=== PATIENT | male | born 1935 | race Caucasian/White ===

== ENCOUNTER → 2018-07-17 | Outpatient (CLI) | payer MEDICARE ==
[~2018-07-17] MED LIST: Acetaminophen325 M1 PO; ERGO50000 PO; FLUSAL1005; LISI20; LISI20 PO; LISI5 PO; WARF4 PO; WARF5 PO
== END | disposition home or self-care (01) ==
LOC: PLD 08:43 → LAB SHORT 08:43
DX: L57.0 Actinic keratosis (principal); L81.4 Other melanin hyperpigmentation; L57.8 Other skin changes due to chronic exposure to nonionizing radiation
CPT/HCPCS: 88305

== ENCOUNTER 2018-10-26 09:16 | Inpatient (IN) | payer MEDICARE ==
[~2018-10-26] VITALS: Ht 172.7 cm; Wt 88.0 kg
[~2018-10-26 09:16] MED LIST changes: +DICLOFENAC SOD100 G1 TOP; +LOSA50 PO; +VOLTAREN100 GM; +XARELTO20 MG PO; +[UNRECOGNIZED DRUG - OTHER] PO
--- NOTE | 2018-10-26 09:48 | NUR ---
Ambulatory in Day Surgery History, Chart, Medications and Allergies reviewed before start of procedure.Lungs clear T/O to Auscultation. Surgical site prepped with 2% Chlorhexidine cloth wipe.
--- NOTE | 2018-10-26 10:50 | NUR ---
UP TO BATHROOM AT THIS TIME AND BACK TO BED
--- NOTE | 2018-10-26 15:00 | NUR ---
"DIAMOND SORTER | PATIENT IN A LOT OF PAIN. Spoke with Dr. Jimenez regarding patient pain. Dr. Barreto ordered 30 mg of toradol. Gave patient [address] jimenez stated to give no more fentanyl since patient had apenic episode. He stated the patient needs PO meds."
--- NOTE | 2018-10-26 15:16 | NUR ---
"SENIOR NETWORK SECURITY ARCHITECT | SPOKE WITH DR. BARRETO and report to floor RN Ebonie RN on surgical expressed concern about patient acuity, spoke with Dr. Barreto and she stated that the patient would be appropiate for surgical floor care and ordered continous pulse ox. Order place. Report given to RN. VSS. A/O. Sleepy but arousable. Site c/d/i. Denies nausea. Pain decreasing. Xrays done. Polar pack in place. SCDs on. NOELLE blackburn on."
--- NOTE | 2018-10-26 16:31 | NUR ---
ADMIT TO UNIT PATIENT ARRIVED FROM PACU, MOANING AND REPORTS 9/10 RIGHT HIP PAIN WHICH RADIATED DOWN RIGHT BUTTOCK. PATIENT DENIES ANY SURGICAL KNEE PAIN. PATIENTS RIGHT KNEE WITH POLAR PCAK IN PLACE. AQUACELL DRESSING CLEAN, DRY AND INTACT.
--- NOTE | 2018-10-26 16:33 | NUR ---
PAIN PATIENT REPORTS RIGHT HIP PAIN LESSENED AFTER REPOSITIONED. PHYSICAL THERAPY AT BEDSIDE
--- NOTE | 2018-10-26 17:13 | NUR ---
BIOX PHYSICAL THERAPY AT BEDSIDEPERFORMING PATIENT [place]. PATIENT HAS BEDSIDE OXIMETER IN PLACE TO LEFT HAND AND FINGER PROBE MONITOR IN PLACE TO RIGHT HAND. PT NOTED BIOX TO DROP ON TWO SEPARATE OCCASSIONS WITH PATIENT MOVING IN BED. PATIENTS READINGSWERE 75% DURING ONE EPISODE AND 71% DURING SECOND EPISODE WITH INTACT WAVEFORM PRESENT ON BOTH OXYGEN MONITOR SCREENS. RESPIRATORY CARE NOTIFIED AND RESPONDED TO ROOM. DR EMILEE MCGEE CONTACTED AND NEW ORDERS RECEIVED. PATIENT DAUGHTERS REPORT PATINETS OXYGEN DROPPING HAS OCCURRED IN THE PAST. PER PATIENT HE HAD STUDIES IN THE PAST AT [facility] AND CPAP WAS RECOMMENDED BUT THAT HE DID NOT FOLLOW THROUGH ON OBTAINING CPAP.
--- NOTE | 2018-10-26 17:43 | NUR ---
SUMMARY DR EMILEE MCGEE HERE TO SEE PATIENT. DISCUSSED PATIENTS OXYGEN DE SATURATIONS AND PATIENTS REPORT OF SEVERE POST OP RIGHT HIP PAIN. PATIENT REPORTS HIP PAIN CURRENTLY 3/10 AND HAS NO KNEE PAIN/ RIGHT KNEE DRESSING DRY AND INTACT. PATIENT DENIES ANY NUMBNESS OR TINGLING
--- NOTE | 2018-10-26 18:31 | NUR ---
biox biox reading 75% on right hand and left hand biox with good waveform. patient sleeping. awakened patient and instructed to deep breathe. biox up to 96% after 6 deep breaths. oxygen placed at 2 liters nasal cannula
[2018-10-27 04:43] LABS: BASOPHILS ABSOLUTE AUTO 0.01 K/mm3 (0.00-0.23); BASOPHILS PERCENT AUTO 0 % (0-2); EOSINOPHILS PERCENT AUTO 0 % (0-6); Hematocrit 35.7 % (37.0-53.0); Hemoglobin 11.5 g/dL (13.5-17.5); IMMATURE GRAN ABSOLUTE AUTO 0.05 K/mm3 (0.00-0.10); IMMATURE GRAN PERCENT AUTO 0 % (0-1); LYMPHOCYTES ABSOLUTE AUTO 0.55 K/mm3 (0.84-5.20); LYMPHOCYTES PERCENT AUTO 5 % (21-46); MONOCYTES ABSOLUTE AUTO 0.48 K/mm3 (0.16-1.47); MONOCYTES PERCENT AUTO 4 % (4-13); Mean Corpuscular HGB 30.5 pg (26.0-34.0); Mean Corpuscular HGB Conc 32.2 g/dL (31.5-36.5); Mean Corpuscular Volume 95 fL (80-100); Mean Platelet Volume 10.7 fL (9.1-12.4); NEUTROPHILS PERCENT AUTO 91 % (41-73); Platelet Count 87 K/mm3 (150-400); RDW Coefficient Variation 13.1 % (11.7-14.2); RDW Standard Deviation 45.5 fL (35.1-46.3); Red Blood Cell Count 3.77 M/mm3 (4.30-5.90); White Blood Cell Count 11.69 K/mm3 (4.00-11.30)
[2018-10-27 04:55] LABS: Anion Gap 4 mmol/L (6-16); Blood Urea Nitrogen 14 mg/dL (8-24); Bun/Creatinine Ratio 16.9 (12.0-20.0); CO2, Blood 27 mmol/L (21-32); Calcium, Blood 7.6 mg/dL (8.5-10.1); Chloride, Blood 106 mmol/L (98-108); Creatinine, Blood 0.83 mg/dL (0.60-1.20); Glomerular Filtration Rate >60 (60-); Glucose, Blood 130 mg/dL (70-99); Magnesium, Blood 1.9 mg/dL (1.6-2.4); Potassium, Blood 4.7 mmol/L (3.5-5.5); Sodium, Blood 137 mmol/L (136-145)
--- NOTE | 2018-10-27 07:22 | NUR ---
SHIFT SUMMARY PT POD#1 RIGHT TKA. AAOX4. DISCOMFORT CONTROLLED WITH SCHEDULED TYLENOL/TORADOL + 5MG ROXICODONE X1 THIS SHIFT. NO NAUSEA/EMESIS. 2L VIA NC T/O NIGHT. DRESSING TO RIGHT KNEE C/D/I. PT UP TO AMBULATE IN HALLS, 100 FT, TOLERATED WELL. PT UP IN BED AT THIS TIME, DRINKING COFFEE. HUBER. REPORT TO DAY SHIFT RN.
[2018-10-27] MEDS ORDERED: ACET500 PO (13:30)
[2018-10-27] MEDS ORDERED: ROXICODONE5 MG PO (13:31)
[2018-10-27] MEDS ORDERED: XARELTO20 MG PO (14:19)
--- NOTE | 2018-10-27 16:44 | NUR ---
DISCHARGE SUMMARY PT A&OX4, VSS, LEFT FLOOR VIA WC WITH RN TO GO HOME WITH DAUGHTER WITH ALL PERSONAL POSSESSIONS INCLUDING DISCHARGE PACKET, 2 AQUACEL DRESSINGS, AND 1 NARC SCRIPT. DISCHARGE ORDERS PROVIDED. PT REP UNDERSTANDING THOSE INSTRUCTIONS INCLUDING FU WITH SURGEON, OK TO SHOWER, NO TUB/JACUZZI, CHANGE DRESSING SATURDAYS. IV DC'D.
== END 2018-10-27 14:55 | disposition home or self-care (01) | DRG 470 ==
LOC: ORSCMMR 09:16 → ORD 10:00 → ORSCMMR 10:45 → ORD 10:45 → ORSCMMR 11:15 → SURS 11:15 → ORD 11:45 → SURS 15:34
PROVIDERS: ADMIT Orthopaedic Surgery
PROC: 0SRC0J9 Replacement of Right Knee Joint with Synthetic Substitute, Cemented, Open Approach (ICD-10-PCS; principal; 2018-10-26 10:45)
DX: M17.11 Unilateral primary osteoarthritis, right knee (principal); I10 Essential (primary) hypertension; Z86.718 Personal history of other venous thrombosis and embolism; Z79.01 Long term (current) use of anticoagulants
CPT/HCPCS: 73560-RT; 80048; 83735; 85025; 88300; 94660; 94762; 97110; 97116; 97161; C1713; C1776; J0171; J0690; J0735; J1100; J1885; J2405; J2704; J2795; J3010; J7120

== ENCOUNTER 2018-10-29 20:59 | Inpatient (IN) | payer MEDICARE ==
[~2018-10-29] VITALS: Ht 172.7 cm; Wt 90.1 kg
[~2018-10-29 20:59] MED LIST changes: +ACET500 PO; +ROXICODONE5 MG PO
[2018-10-29 22:10] LABS: BASOPHILS ABSOLUTE AUTO 0.03 K/mm3 (0.00-0.23); BASOPHILS PERCENT AUTO 1 % (0-2); EOSINOPHILS ABSOLUTE AUTO 0.12 K/mm3 (0.00-0.68); EOSINOPHILS PERCENT AUTO 2 % (0-6); Hematocrit 35.4 % (37.0-53.0); Hemoglobin 11.6 g/dL (13.5-17.5); IMMATURE GRAN ABSOLUTE AUTO 0.02 K/mm3 (0.00-0.10); IMMATURE GRAN PERCENT AUTO 0 % (0-1); LYMPHOCYTES ABSOLUTE AUTO 0.65 K/mm3 (0.84-5.20); LYMPHOCYTES PERCENT AUTO 10 % (21-46); MONOCYTES ABSOLUTE AUTO 0.79 K/mm3 (0.16-1.47); MONOCYTES PERCENT AUTO 12 % (4-13); Mean Corpuscular HGB 31.4 pg (26.0-34.0); Mean Corpuscular HGB Conc 32.8 g/dL (31.5-36.5); Mean Corpuscular Volume 96 fL (80-100); Mean Platelet Volume 10.9 fL (9.1-12.4); NEUTROPHILS ABSOLUTE AUTO 4.89 K/mm3 (1.96-9.15); NEUTROPHILS PERCENT AUTO 75 % (41-73); Platelet Count 101 K/mm3 (150-400); RDW Coefficient Variation 13.2 % (11.7-14.2); RDW Standard Deviation 46.7 fL (35.1-46.3)
[2018-10-29 22:28] LABS: Alanine Aminotransfer (ALT/SGP 25 U/L (12-78); Albumin, Blood 3.1 g/dL (3.4-5.0); Alk Phos 54 U/L (50-136); Anion Gap 5 mmol/L (6-16); Aspartate Aminotrans (AST/SGOT 22 U/L (12-37); Bilirubin, Total 0.7 mg/dL (0.1-1.0); Blood Urea Nitrogen 15 mg/dL (8-24); Bun/Creatinine Ratio 16.9 (12.0-20.0); CO2, Blood 26 mmol/L (21-32); Calcium, Blood 8.6 mg/dL (8.5-10.1); Chloride, Blood 105 mmol/L (98-108); Creatinine, Blood 0.89 mg/dL (0.60-1.20); Globulin, Blood 3.1 g/dL (2.2-4.0); Glomerular Filtration Rate >60 (60-); Glucose, Blood 147 mg/dL (70-99); Potassium, Blood 3.9 mmol/L (3.5-5.5); Sodium, Blood 136 mmol/L (136-145); Total Protein, Blood 6.2 g/dL (6.4-8.2)
[2018-10-29 23:47] LABS: Source, Urine Clean Catch
[2018-10-29 23:52] LABS: Bilirubin, Urine Neg (Neg); Blood, Urine Neg (Neg); Glucose Qualitative, Urine Neg (Neg); Ketones, Urine Neg (Neg); Leukocyte Esterase, Urine 1+ (Neg); Nitrite, Urine Neg (Neg); Protein, Urine Neg (Neg); Specific Gravity, Urine 1.005 (1.003-1.022); Urobilinogen, Urine NORM (Normal); pH, Urine 6.5 (5.0-8.0)
[2018-10-30] LABS: Appearance, Urine Clear (Clear); Color, Urine Yellow (P-Yellow)
[2018-10-30 00:01] LABS: Bacteria Not Seen /hpf; Red Blood Cells, Urine Not Seen /hpf (0-2); Squamous Epithelial Cells Not Seen /hpf (Few); White Blood Cells, Urine Rare /hpf (0-5)
--- NOTE | 2018-10-30 04:36 | NUR ---
0230 PT ADMITTED TO ROOM 331 PER CART FROM ER. PTS RIGHT KNEE HAS FOAM DRESSING INTACT WITH OLD DRAINAGE AT DISTAL ASPECT. PTS ENTIRE RLE RED AND SWOLLEN WITH +[id number] BUTR (HOSPITALIST SEWER PIPE OFFBEARER) ADVISED PATIENT HAS RIGHT KNEE FOAM DRESSING FROM SURGERY ON 10/26/[address] MCGEE; DR BURT ORDERED TO LEAVE DRESSING INTACT AND LET SURGEON REMOVE IN AM AND THUS DO NOT TAKE ANY PICTURES AT THIS TIME.
[2018-10-30 05:03] LABS: Hematocrit 32.8 % (37.0-53.0); Hemoglobin 10.5 g/dL (13.5-17.5); Mean Corpuscular HGB 30.5 pg (26.0-34.0); Mean Corpuscular Volume 95 fL (80-100); Mean Platelet Volume 10.6 fL (9.1-12.4); Platelet Count 87 K/mm3 (150-400); RDW Coefficient Variation 13.2 % (11.7-14.2); RDW Standard Deviation 46.4 fL (35.1-46.3); Red Blood Cell Count 3.44 M/mm3 (4.30-5.90)
[2018-10-30 05:11] LABS: Alanine Aminotransfer (ALT/SGP 22 U/L (12-78); Albumin, Blood 2.8 g/dL (3.4-5.0); Alk Phos 49 U/L (50-136); Anion Gap 5 mmol/L (6-16); Aspartate Aminotrans (AST/SGOT 19 U/L (12-37); Bilirubin, Total 0.7 mg/dL (0.1-1.0); Blood Urea Nitrogen 12 mg/dL (8-24); CO2, Blood 27 mmol/L (21-32); Chloride, Blood 108 mmol/L (98-108); Creatinine, Blood 0.86 mg/dL (0.60-1.20); Globulin, Blood 2.7 g/dL (2.2-4.0); Glomerular Filtration Rate >60 (60-); Glucose, Blood 109 mg/dL (70-99); Sodium, Blood 140 mmol/L (136-145); Total Protein, Blood 5.5 g/dL (6.4-8.2)
--- NOTE | 2018-10-30 05:41 | NUR ---
SHIFT SUMMARY: 83 Y/O MALE RESTED COMFORTABLY AFTER ARRIVAL TO FLOOR. PT RATED RIGHT KNEE PAIN 9/10 AND WAS GIVEN FENTANYL 50MCG WITH RELIEF FELT. PTS RIGHT LOWER EXTREMITY RED AND HOT TO TOUCH FROM MID THIGH TO ANKLE WITH +3 EDEMA NOTED. PT ALERT AND ORIENTED X 4. PT LOW POSITION, CALL LIGHT AT SIDE.
--- NOTE | 2018-10-30 08:33 | NUR ---
PROVIDER CONSULT CONSULT CALLED TO DR Anurag MCGEE OFFICE AND MESSAGE LEFT 10/30/18 @6281
--- NOTE | 2018-10-30 18:14 | NUR ---
Per admit trigger, I met with Mr. Leavitt to offer information regarding Advanced Directives. He tells me he has "one of those" through [facility]. "My family knows what to do." He was pleasant, but dismissive.
--- NOTE | 2018-10-30 19:08 | NUR ---
DR MAY AT BEDSIDE TODAY TO EVALUATE PT'S RT KNEE SURGICAL INCISION. DRESSING CHANGED BY DR MAY. TELE DISCONTINUED, ANTIBIOTICS Q8 CONTINUES. MEDICATED FOR PAIN X2 PER EMAR. NO ACUTE CHANGES NOTED THIS SHIFT, WILL CONTINUE TO MONITOR AND REPORT TO ONCOMING RN
--- NOTE | 2018-10-31 04:35 | NUR ---
SHIFT SUMMARY: 83 Y/O MALE RESTED COMFORTABLY ALL SHIFT. PT C/O RIGHT KNEE DISCOMFORT RATED 6/10 AND RECEIVED PAIN RELIEF FROM MEDS ORDERED VIA MAR (FENTANYL 50MCG AND ROXICODONE 5MG ON TWO SEPERATE OCCASIONS). PTS RIGHT LOWER EXTREMITY STILL RED AND EDEMATOUS WITH FOAM DRESSING TO KNEE DRY AND INTACT, RIGHT FOOT PUSH AND PULL STRONG, DENIES NAUSEA, HAPPY AND COOPERATIVE, ALERT AND ORIENTED X 4, FRIENDS AT SIDE BEGINNING OF SHIFT, BED ALARM APPLIED, BED LOW POSITION, CALL LIGHT AT SIDE.
--- NOTE | 2018-10-31 04:40 | NUR ---
10/30/18 2330 PT VOICED CONCERNS ABOUT MD NOT FULLING EXPLAINING CURRENT MEDICAL CONDITION AND HOW LONG HIS STAY IN HOSPITAL COULD POSSIBLY OCCUR AFTER BEDSIDE VISIT ON 10/30/18. THIS NURSE PROVIDED LISTENING EAR AND CONTACTED CLINICAL PRODUCT MANUFACTURING PROFESSIONAL--VALERIE TALAVERA RN WHOM WENT TO SIDE AND LISTENED TO CONCERNS.
--- NOTE | 2018-10-31 08:00 | NUR ---
PT PLEASANT TALKATIVE. A/O. SOME RT KNEE PAIN. SWOLLEN, WARM. MED PER EMAR. H/R REG, NO MURMER NOTED. NO TELE. LUNGS CLEAR, RESP EASY, UNLABORED. ON R/A. BT X4 LAST BM 5 DAYS. STATES PASSING GAS. INFORMED DR SCOTT. ORDERS PENDING FOR BOWEL CARE. VOIDS PER URINAL. HAS BEEN BEDBOUND LAST TWO DAYS. WILL CALL DR MAY FOR INSTRUCTIONS. PT NOT SURE WHY. BED IN LOW POSITION, CALL LITE IN REACH, CALLS APPROP/
--- NOTE | 2018-10-31 14:05 | NUR ---
[address] MAY. OKAY MOVING ABOUT IS GOOD. 1 ASST FWW IF NEED. PT WAS MOBILE AT HOME. LIKELY OVERWORKED SELF CAUSING INFLAMATION. ICE IS GOOD FOR LEG KNEE PAIN. 1100 PT TO CHAIR WITH FOOT STAND ON PILLOW. PT HAS PAIN. RECENTLY MEDICATED. WILL FOLLOW. PT DOING WELL. 1130 FAMLY CALLED ME TO ROOM. PT PAIN INCREASED. WENT TO GET FENTANYL. 1135 FAMILY CALLED AGAIN. PT NOT DOING WELL. GOT HELP. TO ROOM. PT SITTING IN CHAIR. C/O 10/10 PAIN IN ANKLE. BP 74/40. GOT ASSISTANCE TO GET PT TO BED. PT LITTLE HELP IN TX. RAPID CALLED. 1145 BED RETAKE WAS 110/70 LYING DOWN. FEET UP. CALLED DR. SCOTT. NEW ORDERS FOR BOLUS. PT DID NOT QUITE LOSE CONSCIOUSNESS. CLOSE. DR MAY CALLED TO CHECK ON PT. ORDERS FOR VENOUS DOPPLER ON RT LEG 1200 BP 146/76. PT A/O TALKING AGAIN CLEARLY. FAMILY REMAINS AT BEDSIDE. CONTINUE TO MONITOR.
--- NOTE | 2018-10-31 18:32 | NUR ---
PT QUITE PLEASANT TODAY. DID HAVE RAPID RESPONSE. PT WAS SITTING IN CHAIR. C/O PAIN. WENT TO GET PAIN MED. WHEN RETURNED, FAMILY STATES HE DECLINING. PAIN MED WAS HELD. BP IN 70'S. GOT HIM TO BED. WHEN PT FLAT WITH FEET UP IN BED, BP IMPROVED TO 110. BOLUS WAS ADMIN. BP IMPROVED MORE. PT PAIN IMPROVED WITH APPLICATION OF ICE. PT QUITE TALKATIVE TODAY. DISCUSSED HIS BOWEL PROTOCOL AND BOWELS CAN SLOW PARISTALSIS WITH NARCOTICS. PT TO START BOWEL PROTOCOL MEDS THIS UCHE AND MORE IN AM IF NOT MOVING. NO OTHER CONCERNS AT THIS TIME. BED IN LOW POSITION, CALL LITE IN REACH, CALLS APPROP
[2018-11-01 05:15] LABS: BASOPHILS ABSOLUTE AUTO 0.04 K/mm3 (0.00-0.23); BASOPHILS PERCENT AUTO 1 % (0-2); EOSINOPHILS ABSOLUTE AUTO 0.28 K/mm3 (0.00-0.68); EOSINOPHILS PERCENT AUTO 4 % (0-6); Hematocrit 31.7 % (37.0-53.0); Hemoglobin 10.4 g/dL (13.5-17.5); IMMATURE GRAN ABSOLUTE AUTO 0.03 K/mm3 (0.00-0.10); IMMATURE GRAN PERCENT AUTO 1 % (0-1); LYMPHOCYTES ABSOLUTE AUTO 0.76 K/mm3 (0.84-5.20); LYMPHOCYTES PERCENT AUTO 12 % (21-46); MONOCYTES ABSOLUTE AUTO 0.72 K/mm3 (0.16-1.47); MONOCYTES PERCENT AUTO 11 % (4-13); Mean Corpuscular HGB 30.9 pg (26.0-34.0); Mean Corpuscular HGB Conc 32.8 g/dL (31.5-36.5); Mean Corpuscular Volume 94 fL (80-100); Mean Platelet Volume 10.6 fL (9.1-12.4); NEUTROPHILS ABSOLUTE AUTO 4.47 K/mm3 (1.96-9.15); NEUTROPHILS PERCENT AUTO 71 % (41-73); Platelet Count 130 K/mm3 (150-400); RDW Coefficient Variation 13.1 % (11.7-14.2); RDW Standard Deviation 45.1 fL (35.1-46.3); Red Blood Cell Count 3.37 M/mm3 (4.30-5.90)
[2018-11-01 05:40] LABS: Anion Gap 5 mmol/L (6-16); Blood Urea Nitrogen 15 mg/dL (8-24); Bun/Creatinine Ratio 17.8 (12.0-20.0); CO2, Blood 26 mmol/L (21-32); Chloride, Blood 107 mmol/L (98-108); Creatinine, Blood 0.84 mg/dL (0.60-1.20); Glomerular Filtration Rate >60 (60-); Glucose, Blood 108 mg/dL (70-99); Potassium, Blood 4.1 mmol/L (3.5-5.5); Sodium, Blood 138 mmol/L (136-145)
--- NOTE | 2018-11-01 06:05 | NUR ---
SHIFT SUMMARY PT PLEASANT AND COOPERATIVE. ICE PAD WRAP FROM HOME OKAY'D BY . PT WORE THROUGHOUT THE NIGHT. RELIEVES MUCH OF PATIENT'S PAIN IN R KNEE. R LEG SWOLLEN AND PAINFUL. PT HAD RECENT R KNEE REPLACEMENT. MEDICATED X 2 THIS EVENING. FIRST DOSE PT REQUIRED 2 TABS ROXICODONE 5 MG TO RELIEVE PAIN. REQUIRED ONLY 1 TAB EARLY THIS AM. PT RESTING COMFORTABLY AT THIS TIME. VITAL SIGNS STABLE. OTHERWISE NO ACUTE CHANGES. WILL CONTINUE TO MONITOR.
--- NOTE | 2018-11-01 13:28 | NUR ---
HIS PO PAIN MEDICATION WAS NOT ENOUGH EARLY THIS MORNING SO I GAVE IV FENTANYL 25MCG X1. JUST AFTER 0930, I GAVE HIM 2 OXYCODONE FOR HIS R KNEE PAIN WHICH WAS EFFECTIVE FOR PHYSICAL THERAPY AND THEREAFTER. HE HAS BEEN UP IN THE RECLINER WITH PILLOW UNDER HIS R LEG TO TRY TO ELEVATE IT ENOUGH. POLAR ICE WAS REFILLED AND BEEN ON ALL DAY EXCEPT FOR WORKING WITH PT. R KNEE DRESSING IS CD&I. AREA VERY SWOLLEN AND ECCHYMOTIC. HIS IS AT THE BEDSIDE AND HAS HAD OTHER VISITORS. O2 2L WITH CONTINUOUS BIOX ON.
--- NOTE | 2018-11-01 19:19 | NUR ---
HE JUST WENT FOR ANOTHER WALK WITH O2, IV, WALKER AND GAIT BELT. HE HAS HAD A GOOD DAY WITH CONTROLLED OR NO PAIN. CHANGED HIS R KNEE DRESSING. SITE IMPROVING. NO SIGNS OF INFECTION. THE REDNESS IS SUBSIDING AND LOOKS MORE LIKE ECCHYMOSIS SAYS . HE RECEIVED OXYCODONE TWICE TODAY. CONTINUOUS BIOX ON. HE HAS BEEN UP IN THE RECLINER MOST OF THE DAY.
--- NOTE | 2018-11-02 04:20 | NUR ---
SHIFT SUMMARY PT PLEASANT AND COOPERATIVE. TOOK A WALK OUT IN THE HALLS WITH THE DAY SHIFT INVESTIGATOR AT START OF SHIFT. TOLERATED WELL. REMAINED IN THE RECLINER AND SLEPT IN IT FOR MUCH OF THE NIGHT. NOT WANTING TO GET IN THE BED UNTIL APPROX 0330. POLAR ICE PAD TO R KNEE. REFILLED HOLDING CONTAINER MULTIPLE TIMES THROUGHOUT THE NIGHT. R KNEE REMAINS SWOLLEN. MEDICATED X 2 WITH 2 TABS ROXICODONE. VITAL SIGNS STABLE. OTHERWISE NO ACUTE CHANGES. WILL CONTINUE TO MONITOR.
--- NOTE | 2018-11-02 15:55 | NUR ---
DR. MAY ROUNDED WANTS DAILY DRESSING CHANGES AND FOR BOTH LEGS TO HAVE ABOVE THE KNEE NOELLE HOSE. I CALLED [facility] AND INFORMED HIS NURSE DEEPIKA.
[2018-11-02] MEDS ORDERED: Laxative Suppos10 MG PR (16:26)
[2018-11-02] MEDS ORDERED: CEPH500 PO (16:28)
[2018-11-02] MEDS ORDERED: Colace100 MG PO (16:30)
[2018-11-02] MEDS ORDERED: Milk Of Ma400 MG/5 M PO (16:31)
[2018-11-02] MEDS ORDERED: SENN187 PO (16:32)
--- NOTE | 2018-11-02 16:59 | NUR ---
GAVE HANDOFF REPORT TO [facility] CALLED [facility]. GAVE HANDOFF REPORT TO NURSE DEEPIKA. SHE HAD NO FURTHER QUESTIONS. [facility] ARRIVED TO TRANSPORT PT. DISCHARGE PLANNING ARRANGED TRANSFER DETAILS. IV DC'D WNL. PERSONAL POSSESSIONS GATHERED FOR PT. PT DECLINED TO WEAR PERSONAL CLOTHES, GOING INSTEAD IN HOSPITAL GOWN. PACKET PROVIDED TO [facility] FIELD SUPERINTENDENT. FAMILY INFORMED OF TRANSFER.
== END 2018-11-02 16:37 | DRG 603 ==
LOC: ER 20:59 → MEDS 10-30 02:26
PROVIDERS: Hospitalist; Physician Assistant; ADMIT Internal Medicine
DX: L03.115 Cellulitis of right lower limb (principal); I42.9 Cardiomyopathy, unspecified; R09.02 Hypoxemia; I10 Essential (primary) hypertension; I95.9 Hypotension, unspecified; I25.10 Atherosclerotic heart disease of native coronary artery without angina pectoris; Z96.651 Presence of right artificial knee joint; Z86.711 Personal history of pulmonary embolism; Z95.0 Presence of cardiac pacemaker; Z79.01 Long term (current) use of anticoagulants
CPT/HCPCS: 36415; 71046; 80048; 80053; 81001; 83605; 85025; 85027; 85651; 86140; 87040; 93005; 93010; 93971; 94761; 94762; 96361; 96365; 96366; 96367; 96375; 96376; 97110; 97116; 97162; 97530; 99285-25; A9270; J0690; J2270; J3010; J3370; J3480; J7030; J7050

== ENCOUNTER 2019-02-24 14:56 | Emergency (ER) | payer MEDICARE ==
[~2019-02-24] VITALS: Ht 175.3 cm; Wt 86.2 kg
[~2019-02-24 14:56] MED LIST changes: +CEPH500 PO; +Colace100 MG PO; +Laxative Suppos10 MG PR; +Milk Of Ma400 MG/5 M PO; +SENN187 PO
== END 2019-02-24 15:37 | disposition home or self-care (01) ==
LOC: ER 14:56
DX: Z48.817 Encounter for surgical aftercare following surgery on the skin and subcutaneous tissue (principal); I25.10 Atherosclerotic heart disease of native coronary artery without angina pectoris; I10 Essential (primary) hypertension; Z86.711 Personal history of pulmonary embolism; Z85.828 Personal history of other malignant neoplasm of skin; Z79.899 Other long term (current) drug therapy; Z79.01 Long term (current) use of anticoagulants
CPT/HCPCS: 99282

== ENCOUNTER 2019-02-25 19:08 | Emergency (ER) | payer MEDICARE ==
[~2019-02-25] VITALS: Ht 175.3 cm; Wt 88.5 kg
== END 2019-02-25 20:29 | disposition home or self-care (01) ==
LOC: ER 19:08
DX: T85.698A Other mechanical complication of other specified internal prosthetic devices, implants and grafts, initial encounter (principal); I10 Essential (primary) hypertension; I25.10 Atherosclerotic heart disease of native coronary artery without angina pectoris; Z85.828 Personal history of other malignant neoplasm of skin; Z86.711 Personal history of pulmonary embolism; Z79.899 Other long term (current) drug therapy; Z79.01 Long term (current) use of anticoagulants
CPT/HCPCS: 99282

== ENCOUNTER 2019-05-03 05:46 | Day surgery (SDC) | payer MEDICARE ==
[~2019-05-03] VITALS: Ht 175.3 cm; Wt 89.0 kg
[2019-05-03] MEDS ORDERED: ACET325 PO (06:19)
[2019-05-03] MEDS ORDERED: VITAMIN C500 MG PO (06:24)
[2019-05-03] MEDS ORDERED: B-121000 MC2 PO (06:25)
--- NOTE | 2019-05-03 08:30 | NUR ---
TO RECOVERY VIA RECLINER. PT AWAKE AND ALERT. DRESSING DRY AND INTACT OVER LEFT SURGICAL SITE. NO C/O PAIN. EGM SHOWS VENTRICULAR PACING
--- NOTE | 2019-05-03 08:45 | NUR ---
ICE PACK AND 2 POUND WEIGHT APPLIED TO LEFT UPPER CHEST SURGICAL SITE.
--- NOTE | 2019-05-03 09:20 | NUR ---
DRESSING FOR DISCHARGE. DISCHARGE INSTRUCTIONS GIVEM WITH VERBAL AND WRITTEN UNDERSTANDING.
--- NOTE | 2019-05-03 09:25 | NUR ---
IV REMOVED INTACT. 2X2, MANUAL PRESSURE AND COBAN APPLIED.
--- NOTE | 2019-05-03 09:35 | NUR ---
DISCHARGED HOME VIA WHEELCHAIR. DAUGHTER DRIVING. LEFT UPPER CHEST SURGICAL SITE WITH SCANT BLOOD UNDER TEGADERM. ICE PACK CONTINUES.
== END 2019-05-03 09:35 | disposition home or self-care (01) ==
LOC: MHTC 05:46
DX: Z45.010 Encounter for checking and testing of cardiac pacemaker pulse generator [battery] (principal); I48.91 Unspecified atrial fibrillation; I49.5 Sick sinus syndrome; I45.3 Trifascicular block; D69.6 Thrombocytopenia, unspecified; M19.90 Unspecified osteoarthritis, unspecified site; I10 Essential (primary) hypertension; K21.9 Gastro-esophageal reflux disease without esophagitis; Z86.711 Personal history of pulmonary embolism; Z79.01 Long term (current) use of anticoagulants; Z79.899 Other long term (current) drug therapy; Z88.8 Allergy status to other drugs, medicaments and biological substances; Z51.5 Encounter for palliative care
CPT/HCPCS: 33228; 93005; 93010; 99152; 99153; C1785; C1786; J0690; J1644; J2250; J3010; J7030; J7040

== ENCOUNTER → 2020-05-25 | Outpatient (CLI) | payer MEDICARE ==
[~2020-05-25] MED LIST changes: +ACET325 PO; +B-121000 MC2 PO; +LASIX40 MG PO; +OXYC5 PO; +VITAMIN C500 MG PO
== END | disposition home or self-care (01) ==
LOC: LAB 12:05 → LAB SHORT 12:05
DX: A49.9 Bacterial infection, unspecified (principal)
CPT/HCPCS: 87070; 87205

== ENCOUNTER 2020-09-21 08:07 | Day surgery (SDC) | payer MEDICARE ==
[~2020-09-21] VITALS: Ht 171.4 cm; Wt 90.2 kg
[~2020-09-21 08:07] MED LIST changes: -LASIX40 MG PO; -OXYC5 PO
[2020-09-21] MEDS ORDERED: LASIX40 MG PO (08:54)
--- NOTE | 2020-09-21 17:48 | NUR ---
PT ARRIVED TO ROOM 215 FROM PACU S/P L TKA AT ABOUT 1630. PT IS A/O X4, VSS. PT IS UNABLE TO FEEL TOUCH OR PRESSURE FROM HIPS DOWN TO TOES. UNABLE TO WIGGLE TOES AT THIS TIME. PULSES ARE STRONG BILAT. PT HAS NO PAIN AT THIS TIME. 2ND DOSE TXA ADMINISTERED. PT HAS FAMILY AT BEDSIDE. PT TOLERATING PO INTAKE W/O NAUSEA. DRESSING TO L KNEE CDI, POLAR PACK IN PLACE, TEDS & SCD'S IN PLACE.
[2020-09-22 04:20] LABS: BASOPHILS PERCENT AUTO 0 % (0-2); EOSINOPHILS PERCENT AUTO 0 % (0-6); Hematocrit 34.3 % (37.0-53.0); Hemoglobin 11.5 g/dL (13.5-17.5); IMMATURE GRAN ABSOLUTE AUTO 0.02 K/mm3 (0.00-0.10); IMMATURE GRAN PERCENT AUTO 0 % (0-1); LYMPHOCYTES ABSOLUTE AUTO 0.43 K/mm3 (0.84-5.20); LYMPHOCYTES PERCENT AUTO 4 % (21-46); MONOCYTES ABSOLUTE AUTO 0.54 K/mm3 (0.16-1.47); MONOCYTES PERCENT AUTO 5 % (4-13); Mean Corpuscular HGB Conc 33.5 g/dL (31.5-36.5); Mean Corpuscular Volume 93 fL (80-100); NEUTROPHILS ABSOLUTE AUTO 9.67 K/mm3 (1.96-9.15); NEUTROPHILS PERCENT AUTO 91 % (41-73); Platelet Count 89 K/mm3 (150-400); RDW Coefficient Variation 12.7 % (11.7-14.2); RDW Standard Deviation 43.2 fL (35.1-46.3); Red Blood Cell Count 3.71 M/mm3 (4.30-5.90); White Blood Cell Count 10.66 K/mm3 (4.00-11.30)
[2020-09-22 04:44] LABS: Anion Gap 2 mmol/L (6-16); Blood Urea Nitrogen 19 mg/dL (8-24); Bun/Creatinine Ratio 17.6 (12.0-20.0); CO2, Blood 28 mmol/L (21-32); Calcium, Blood 7.8 mg/dL (8.5-10.1); Chloride, Blood 109 mmol/L (98-108); Creatinine, Blood 1.08 mg/dL (0.60-1.20); Glomerular Filtration Rate >60 (60-); Glucose, Blood 142 mg/dL (70-99); Magnesium, Blood 2.1 mg/dL (1.6-2.4); Potassium, Blood 4.8 mmol/L (3.5-5.5); Sodium, Blood 139 mmol/L (136-145)
--- NOTE | 2020-09-22 06:41 | NUR ---
A/OX4. VSS ON RA. PAIN MANAGED WELL W/ SCHEDULED AND PRN PAIN MEDS. PT AMBULATED IN ROOM AND HALLWAY 1X. RESTARTED CONTINOUS IV FLUIDS PT WAS NOT DRINKING MUCH AND HAD LOW URINE OUTPUT. BLADDER SCAN AT 177 AT MIDNIGHT. ENCOURAGED FLUIDS. PT URINATED IN AM. SLEEPING B/W CARE. USING CALL LIGHT TO MAKE NEEDS KNOWN.
[2020-09-22] MEDS ORDERED: ACET500 PO (08:44)
[2020-09-22] MEDS ORDERED: OXYC5 PO (08:45)
--- NOTE | 2020-09-22 11:15 | NUR ---
DISCHARGE CLEARED THERAPY. EATING, DRINKING, & VOIDING EASILY. PAIN WELL CONTROLLED. ESCORTED OUT VIA W/C.
== END 2020-09-22 11:30 | disposition home or self-care (01) ==
LOC: ORSCMMR 08:07 → SURS 16:19 → ORSCMMR 09-22 11:30
PROVIDERS: Orthopaedic Surgery
PROC: 0SRD0JA Replacement of Left Knee Joint with Synthetic Substitute, Uncemented, Open Approach (ICD-10-PCS; principal; 2020-09-21 10:45)
PROC: 8E0Y0CZ Robotic Assisted Procedure of Lower Extremity, Open Approach (ICD-10-PCS; principal; 2020-09-21 10:45)
DX: M17.12 Unilateral primary osteoarthritis, left knee (principal); I10 Essential (primary) hypertension; K21.9 Gastro-esophageal reflux disease without esophagitis; Z79.899 Other long term (current) drug therapy; Z79.01 Long term (current) use of anticoagulants; Z95.0 Presence of cardiac pacemaker
CPT/HCPCS: 36415; 73560-LT; 80048; 83735; 85025; 97110; 97116; 97162; 97530; A9270; C1776; J0171; J0690; J0735; J1100; J1170; J1885; J2370; J2405; J2704; J2795; J3010; J7120

== ENCOUNTER 2021-07-03 10:27 | Emergency (ER) | payer MEDICARE ==
[~2021-07-03] VITALS: Ht 172.7 cm; Wt 86.2 kg
[~2021-07-03 10:27] MED LIST changes: +LASIX40 MG PO; +OXYC5 PO
== END 2021-07-03 11:44 | disposition home or self-care (01) ==
LOC: ER 10:27
DX: Z48.01 Encounter for change or removal of surgical wound dressing (principal); I10 Essential (primary) hypertension; Z79.899 Other long term (current) drug therapy
CPT/HCPCS: 99282

== ENCOUNTER 2022-03-10 12:30 | Inpatient (IN) | payer OTHER, MEDICARE ==
[~2022-03-10] VITALS: Ht 172.7 cm; Wt 86.8 kg
[2022-03-10 13:27] LABS: BASOPHILS ABSOLUTE AUTO 0.02 K/mm3 (0.00-0.23); BASOPHILS PERCENT AUTO 0 % (0-2); EOSINOPHILS PERCENT AUTO 0 % (0-6); Hematocrit 41.4 % (37.0-53.0); Hemoglobin 13.7 g/dL (13.5-17.5); IMMATURE GRAN ABSOLUTE AUTO 0.02 K/mm3 (0.00-0.10); IMMATURE GRAN PERCENT AUTO 0 % (0-1); LYMPHOCYTES ABSOLUTE AUTO 0.61 K/mm3 (0.84-5.20); LYMPHOCYTES PERCENT AUTO 13 % (21-46); MONOCYTES ABSOLUTE AUTO 0.26 K/mm3 (0.16-1.47); MONOCYTES PERCENT AUTO 6 % (4-13); Mean Corpuscular HGB 31.2 pg (26.0-34.0); Mean Corpuscular HGB Conc 33.1 g/dL (31.5-36.5); Mean Corpuscular Volume 94 fL (80-100); Mean Platelet Volume 11.7 fL (9.1-12.4); NEUTROPHILS ABSOLUTE AUTO 3.66 K/mm3 (1.96-9.15); NEUTROPHILS PERCENT AUTO 80 % (41-73); Platelet Count 63 K/mm3 (150-400); RDW Coefficient Variation 13.2 % (11.7-14.2); Red Blood Cell Count 4.39 M/mm3 (4.30-5.90); White Blood Cell Count 4.57 K/mm3 (4.00-11.30)
[2022-03-10 13:50] LABS: Albumin, Blood 3.3 g/dL (3.4-5.0); Bilirubin, Total 0.7 mg/dL (0.1-1.0); Bun/Creatinine Ratio 21.3 (12.0-20.0); Calcium, Blood 8.2 mg/dL (8.5-10.1); Creatinine, Blood 1.08 mg/dL (0.60-1.20); Globulin, Blood 3.4 g/dL (2.2-4.0); Potassium, Blood 4.8 mmol/L (3.5-5.5); Total Protein, Blood 6.7 g/dL (6.4-8.2)
[2022-03-10 15:05] LABS: Influenza B, PCR NEGATIVE (NEGATIVE); Resp Syncytial Virus, PCR NEGATIVE (NEGATIVE); SARS-Cov-2 (COVID-19) PCR, MMC NEGATIVE (NEGATIVE)
[2022-03-10 15:06] LABS: Influenza A, PCR POSITIVE (NEGATIVE)
[2022-03-10 17:15] LABS: Creatine Kinase MB 1.1 ng/mL (0.0-3.6); Creatine Kinase MB Index 0.6 (0.0-4.0)
--- NOTE | 2022-03-10 20:22 | NUR ---
SHIFT SUMMARY PTN TRANSFER FROM ER FOR ADMIT WITH ACUTE RESPIRATORY WITH HYPOXIA AFTER O2 WAS NOTED TO BE IN THE 80'S AT HIS DOCTOR'S OFFICE. PTN STATES HE JUST CANNOT KEEP HIS OXYGEN UP AND IS FATIGUED, BUT HAS NO OTHER SYMPTOMS. AT 2L PTN AT 97%. PTN HAD CHEST X-RAY DONE TODAY IN ER. LUNGS CLEAR AND DISTANT. SOME SWELLING IN FEET AND ANKLES, WHICH PTN STATES HE HAS HAD BEFORE, BUT NOT QUITE THIS BAD. PTN IS ON FUROSEMIDE. COMPLETE HX NOT KNOWN BY THIS RN, BUT PTN DOES STATE PREVIOUS PULMONARY EMBOLISM AND PNEUMONIA. HE HAS HAD A PACEMAKER FOR PAST 12 YEARS, HE BELIEVES SET AT 60 BPM. CONTINUE TO MONITOR.
[2022-03-11 01:21] LABS: Hemoglobin 13.4 g/dL (13.5-17.5); Mean Corpuscular HGB 31.2 pg (26.0-34.0); Mean Corpuscular HGB Conc 33.5 g/dL (31.5-36.5); Mean Corpuscular Volume 93 fL (80-100); Mean Platelet Volume 12.1 fL (9.1-12.4); Platelet Count 53 K/mm3 (150-400); RDW Coefficient Variation 13.2 % (11.7-14.2); RDW Standard Deviation 45.2 fL (35.1-46.3); Red Blood Cell Count 4.29 M/mm3 (4.30-5.90); White Blood Cell Count 2.99 K/mm3 (4.00-11.30)
[2022-03-11 01:37] LABS: Calcium, Blood 8.1 mg/dL (8.5-10.1); Creatinine, Blood 1.25 mg/dL (0.60-1.20); Magnesium, Blood 2.2 mg/dL (1.6-2.4); Phosphorus, Blood 3.3 mg/dL (2.5-4.9); Potassium, Blood 3.6 mmol/L (3.5-5.5)
[2022-03-11 01:39] LABS: Creatine Kinase MB 1.5 ng/mL (0.0-3.6); Creatine Kinase MB Index 1.2 (0.0-4.0)
--- NOTE | 2022-03-11 07:18 | NUR ---
SHIFT SUMMARY PATIENT ALERT AND ORIENTED. HAD NO COMPLAINTS OF PAIN OR SHORTNESS OF BREATH. NO ACUTE ISSUES NOTED OVERNIGHT. CONTINUES ON 2 LITERS O2 VIA NASAL CANULA. CALL LIGHT WITHIN REACH. REPORT GIVEN TO ONCOMING RN.
[2022-03-11 07:53] LABS: Creatine Kinase MB 1.4 ng/mL (0.0-3.6); Creatine Kinase MB Index 1.2 (0.0-4.0)
--- NOTE | 2022-03-11 18:55 | NUR ---
SHIFT SUMMARY: PATIENT ALERT AND ORIENTED X4. HE WAS VERY PLEASANT AND COOPERATIVE WITH ALL CARE. PT HAD NO C/O PAIN OR SOB DURING THIS SHIFT. HE IS SCHEDULED TO HAVE A HOME O2 EVAL TOMORROW THEN POSSIBLY D/C AFTER. CONTINUES ON 2 LITERS OF O2. PT TROPONIN CONTINUES TO LOWER TO A MORE ACCEPTABLE LEVEL. NOELLE TERAN APPLIED. CALL LIGHT IN REACH. BED IN LOWEST POSITION.
--- NOTE | 2022-03-12 05:02 | NUR ---
Patient resting in bed most of this shift, cooperative with care.
[2022-03-12 06:21] LABS: Albumin, Blood 2.9 g/dL (3.4-5.0); Anion Gap 6 mmol/L (6-16); Blood Urea Nitrogen 24 mg/dL (8-24); Bun/Creatinine Ratio 23.3 (12.0-20.0); CO2, Blood 29 mmol/L (21-32); Chloride, Blood 103 mmol/L (98-108); Creatinine, Blood 1.03 mg/dL (0.60-1.20); Glomerular Filtration Rate 70 (60-); Glucose, Blood 95 mg/dL (70-99); Phosphorus, Blood 3.1 mg/dL (2.5-4.9); Potassium, Blood 3.9 mmol/L (3.5-5.5); Sodium, Blood 138 mmol/L (136-145)
--- NOTE | 2022-03-12 16:46 | NUR ---
PT IS A/OX4, PLEASANT AND COOPERATIVE. THE PT IS UP IND IN HIS ROOM. PT APPEARS TO BE BREATHING EASILY AT REST ON O2 @ 2L/MIN. O2 TITRATED TO 1L/ MIN THIS AFTERNOON . PT DENIED ANY PAIN OR N/V T/O THE SHIFT. PT WAS UP AND SHOWERED TODAY WITHOUT O2 ON AND BECAME SOB. FAMILY WAS AT THE BEDSIDE FOR MOST OF THE DAY. CALL LIGHT IN REACH. WILL CONTINUE TO MONITOR AND ASSESS FOR CHANGES
--- NOTE | 2022-03-13 03:30 | NUR ---
Patient resting in room, cooperative with care.
[2022-03-13 06:02] LABS: BASOPHILS ABSOLUTE AUTO 0.02 K/mm3 (0.00-0.23); BASOPHILS PERCENT AUTO 1 % (0-2); EOSINOPHILS ABSOLUTE AUTO 0.08 K/mm3 (0.00-0.68); EOSINOPHILS PERCENT AUTO 3 % (0-6); Hematocrit 39.3 % (37.0-53.0); Hemoglobin 13.4 g/dL (13.5-17.5); IMMATURE GRAN ABSOLUTE AUTO 0.01 K/mm3 (0.00-0.10); IMMATURE GRAN PERCENT AUTO 0 % (0-1); LYMPHOCYTES ABSOLUTE AUTO 0.61 K/mm3 (0.84-5.20); LYMPHOCYTES PERCENT AUTO 24 % (21-46); MONOCYTES ABSOLUTE AUTO 0.37 K/mm3 (0.16-1.47); MONOCYTES PERCENT AUTO 15 % (4-13); Mean Corpuscular HGB Conc 34.1 g/dL (31.5-36.5); Mean Corpuscular Volume 91 fL (80-100); Mean Platelet Volume 11.3 fL (9.1-12.4); NEUTROPHILS ABSOLUTE AUTO 1.46 K/mm3 (1.96-9.15); NEUTROPHILS PERCENT AUTO 57 % (41-73); Platelet Count 61 K/mm3 (150-400); RDW Coefficient Variation 12.6 % (11.7-14.2); RDW Standard Deviation 42.3 fL (35.1-46.3); Red Blood Cell Count 4.32 M/mm3 (4.30-5.90); White Blood Cell Count 2.55 K/mm3 (4.00-11.30)
[2022-03-13 06:47] LABS: Bun/Creatinine Ratio 20.4 (12.0-20.0); Calcium, Blood 8.1 mg/dL (8.5-10.1); Creatinine, Blood 0.93 mg/dL (0.60-1.20); Potassium, Blood 3.4 mmol/L (3.5-5.5)
[2022-03-13] MEDS ORDERED: OSELTAMIVIR PHO30 M1 PO (11:34)
[2022-03-13] MEDS ORDERED: BUME1 PO (11:34)
[2022-03-13] MEDS ORDERED: K-Dur20 MEQ PO (11:35)
--- NOTE | 2022-03-13 14:04 | NUR ---
Patient doing well today, titrated O2 to RA. Home O2 eval completed, no oxygen needed for discharged. MD assessed patient at bed, orders to discharge home. Reviewed discharge education, pt verbalized understnading. Removed IV. Patient left unit & 1400.
== END 2022-03-13 14:00 | disposition home or self-care (01) | DRG 193 ==
LOC: ER 12:30 → MEDS 16:00
PROVIDERS: Internal Medicine; Student in an Organized Health Care Education/Training Program; ADMIT Internal Medicine
DX: J10.1 Influenza due to other identified influenza virus with other respiratory manifestations (principal); I50.31 Acute diastolic (congestive) heart failure; J96.01 Acute respiratory failure with hypoxia; N17.9 Acute kidney failure, unspecified; E87.1 Hypo-osmolality and hyponatremia; I42.2 Other hypertrophic cardiomyopathy; I11.0 Hypertensive heart disease with heart failure; I95.9 Hypotension, unspecified; E87.6 Hypokalemia; R94.31 Abnormal electrocardiogram [ECG] [EKG]; D69.6 Thrombocytopenia, unspecified; I25.10 Atherosclerotic heart disease of native coronary artery without angina pectoris; K43.9 Ventral hernia without obstruction or gangrene; R77.8 Other specified abnormalities of plasma proteins; M79.10 Myalgia, unspecified site; E78.5 Hyperlipidemia, unspecified; M17.0 Bilateral primary osteoarthritis of knee; M51.36 Other intervertebral disc degeneration, lumbar region; K21.9 Gastro-esophageal reflux disease without esophagitis; Z96.653 Presence of artificial knee joint, bilateral; Z98.42 Cataract extraction status, left eye; Z20.822 Contact with and (suspected) exposure to COVID-19; Z98.41 Cataract extraction status, right eye; Z79.899 Other long term (current) drug therapy; Z86.711 Personal history of pulmonary embolism; Z79.01 Long term (current) use of anticoagulants; Z79.891 Long term (current) use of opiate analgesic; Z95.0 Presence of cardiac pacemaker; Z98.890 Other specified postprocedural states; Z85.828 Personal history of other malignant neoplasm of skin; Z92.3 Personal history of irradiation
CPT/HCPCS: 0241U; 36415; 71046; 80048; 80053; 80069; 82550; 82553; 83735; 83880; 84100; 84145; 84443; 84484; 85025; 85027; 93005; 93010; 93306; 94640; 94664; 94760; 96374; 96376; 97110; 97161; 97165; 97535; 99285-25; A9270; J1940

== ENCOUNTER 2023-03-07 09:09 | Day surgery (SDC) | payer MEDICARE ==
[~2023-03-07] VITALS: Ht 175.3 cm; Wt 81.0 kg
[2023-03-07] VITALS (23 sets, daily range): BP systolic 135–164; BP diastolic 76–97
[~2023-03-07 09:09] MED LIST changes: +BUME1 PO; +K-Dur20 MEQ PO; +OSELTAMIVIR PHO30 M1 PO
[2023-03-07] MEDS ORDERED: VITAMIN D33000 UNIT PO (09:47)
--- NOTE | 2023-03-07 10:06 | NUR ---
PT AMBULATES TO PROCEDURE ROOM WITH OUT DIFFICULTY. DR. ANAND AWARE THAT PT DID NOT TAKE HIS XARELTO THIS AM, OKAY TO PROCEED, PT TO TAKE XARELTO WHEN HE GETS HOME TODAY. PT. VSS UPON ARRIVAL. PLACED ON PAPER REWINDER. 22G IV STARTED TO RAC. NS TKO TO IV.
--- NOTE | 2023-03-07 11:32 | NUR ---
S/P CARDIOVERSION EKG COMPLETED. PT. VSS. PT DROWSY BUT WAKENS EASILY TO VERBAL STIMULI.
--- NOTE | 2023-03-07 12:01 | NUR ---
PT CONTINUES TO SLEEP, SPOUSE AT BEDSIDE. VSS, CALL LIGHT IN REACH.
--- NOTE | 2023-03-07 12:53 | NUR ---
PT AND VERBALIZED UNDERSTANDING OF WRITTEN AND VERBAL D/C INST. IV REMOVED. PACED RYTHM 65BPM ON D/C. PT TAKEN OUT OF THE HRT CENTER VIA W/C.
== END 2023-03-07 22:49 | disposition home or self-care (01) ==
LOC: MHTC 09:09
DX: I48.19 Other persistent atrial fibrillation (principal); K21.9 Gastro-esophageal reflux disease without esophagitis; I10 Essential (primary) hypertension; M81.0 Age-related osteoporosis without current pathological fracture; Z95.0 Presence of cardiac pacemaker
CPT/HCPCS: 92960; 93005; 93010; 99152; J1200; J2250; J3010; J7030

== ENCOUNTER 2024-01-09 16:28 | Emergency (ER) | payer MEDICARE ==
[~2024-01-09] VITALS: Ht 172.7 cm; Wt 82.5 kg
[~2024-01-09 16:28] MED LIST changes: +VITAMIN D33000 UNIT PO
[2024-01-09 17:17] LABS: BASOPHILS ABSOLUTE AUTO 0.05 K/mm3 (0.00-0.23); BASOPHILS PERCENT AUTO 1 % (0-2); EOSINOPHILS ABSOLUTE AUTO 0.22 K/mm3 (0.00-0.68); EOSINOPHILS PERCENT AUTO 3 % (0-6); Hematocrit 37.3 % (37.0-53.0); Hemoglobin 12.2 g/dL (13.5-17.5); IMMATURE GRAN ABSOLUTE AUTO 0.04 K/mm3 (0.00-0.10); IMMATURE GRAN PERCENT AUTO 1 % (0-1); LYMPHOCYTES ABSOLUTE AUTO 0.83 K/mm3 (0.84-5.20); LYMPHOCYTES PERCENT AUTO 10 % (21-46); MONOCYTES ABSOLUTE AUTO 0.53 K/mm3 (0.16-1.47); MONOCYTES PERCENT AUTO 6 % (4-13); Mean Corpuscular HGB 30.5 pg (26.0-34.0); Mean Corpuscular HGB Conc 32.7 g/dL (31.5-36.5); Mean Corpuscular Volume 93 fL (80-100); Mean Platelet Volume 10.9 fL (9.1-12.4); NEUTROPHILS ABSOLUTE AUTO 6.64 K/mm3 (1.96-9.15); NEUTROPHILS PERCENT AUTO 80 % (41-73); Platelet Count 127 K/mm3 (150-400); RDW Coefficient Variation 13.1 % (11.7-14.2); White Blood Cell Count 8.31 K/mm3 (4.00-11.30)
[2024-01-09 17:30] LABS: Albumin/Globulin Ratio 0.9 (0.8-1.8); Bun/Creatinine Ratio 16.7 (12.0-20.0); Calcium, Blood 8.2 mg/dL (8.5-10.1); Creatinine, Blood 1.26 mg/dL (0.60-1.20); Globulin, Blood 3.2 g/dL (2.2-4.0); Potassium, Blood 3.7 mmol/L (3.5-5.5); Total Protein, Blood 6.2 g/dL (6.4-8.2)
[2024-01-09 19:30] VITALS: BP 123/60
== END 2024-01-09 19:44 | disposition home or self-care (01) ==
LOC: ER 16:28
PROVIDERS: Emergency Medicine
DX: R55 Syncope and collapse (principal); I10 Essential (primary) hypertension; Z79.899 Other long term (current) drug therapy
CPT/HCPCS: 80053; 85025; 93005; 93010; 99284-25